=== PATIENT | female | born 1975 | race Two or more races ===

== ENCOUNTER 2020-05-04 21:30 | Emergency (ER) | payer SELFPAY ==
--- NOTE | 2020-05-04 22:01 | EDM.PDOC ---
ED HPI GENERAL MEDICAL PROBLEM - General Chief Complaint: Cardiovascular Problem Stated Complaint: IRREGUALR HEART BEAT SOB Time Seen by Provider: 05/04/20 22:00 - History of Present Illness INITIAL COMMENTS - FREE TEXT/NARRATIVE: 44-year-old female presents the emergency room with palpitations and what she thinks is an irregular heartbeat. This started a couple hours prior to arrival the patient feels a little bit anxious. Patient denies any breathing difficulties chest pain or shortness of breath. Patient has a history of prediabetes but denies any other medical problems. The patient is visiting family from [place]. And is scheduled to go home this next week. Mid-Sternal Chest Pain Score (Numeric/FACES): 4 - Related Data Allergies Allergy/AdvReac Type Severity Reaction Status Date / Time No Known Allergies Allergy Verified 05/04/20 21:40 Home Meds: Home Meds Amoxicillin [Amoxil 250 MG/5 ML Susp] 500 mg PO TID 05/04/20 [History] LORazepam [Ativan] 1 mg PO ASDIRECTED PRN #5 tablet 05/05/20 [Rx] Past Medical History - Past Surgical History HEENT Surgical History: Reports: Oral Surgery Social & Family History - Tobacco Use Smoking Status *Q: Never Smoker - Caffeine Use Caffeine Use: Reports: None - Recreational Drug Use Recreational Drug Use: No ED ROS GENERAL - Review of Systems Review Of Systems: See Below Constitutional: Reports: No Symptoms HEENT: Reports: No Symptoms Respiratory: Reports: No Symptoms Cardiovascular: Reports: Palpitations. Denies: Chest Pain Endocrine: Reports: No Symptoms GI/Abdominal: Reports: No Symptoms : Reports: No Symptoms Neurological: Reports: No Symptoms Psychiatric: Reports: No Symptoms ED EXAM, GENERAL - Physical Exam Exam: See Below Exam Limited By: Language Barrier (She speaks pretty good Polish her daughter is able to translate if any clarification needs to be done) General Appearance: Alert, No Apparent Distress, Obese Head: Atraumatic, Normocephalic Respiratory/Chest: No Respiratory Distress, Lungs Clear, Normal Breath Sounds Cardiovascular: No Edema, No Murmur, Tachycardia, Other (Mild tachycardia rate about 110 during my exam) GI/Abdominal: Normal Bowel Sounds, Soft, Non-Tender, Other (Significant abdominal obesity) Back Exam: Normal Inspection. No: CVA Tenderness (L), CVA Tenderness (R) Extremities: Normal Inspection, Non-Tender, No Pedal Edema Neurological: Alert, Oriented, Normal Cognition Psychiatric: Anxious Course - Vital Signs Last Recorded V/S: Last Vital Signs Temp 36.2 C 05/04/20 23:49 Pulse 96 05/04/20 23:49 Resp 18 05/04/20 23:49 BP 130/64 05/04/20 23:49 Pulse Ox 96 05/04/20 23:49 - Orders/Labs/Meds Orders: Active Orders 24 hr Category Date Time Status EKG Documentation Completion [RC] ASDIRECTED Care 05/04/20 22:14 Active Holter Monitor 24 Hours [RC] .PRN Care 05/04/20 23:57 Active Chest 1V Frontal [CR] Stat Exams 05/04/20 22:10 Taken EKG 12 Lead [EK] Stat Ther 05/04/20 22:14 Ordered Labs: Laboratory Tests 05/04/20 05/04/20 05/04/20 Range/Units 22:22 22:22 22:22 WBC 7.55 (3.98-10.04) K/mm3 RBC 4.69 (3.98-5.22) M/mm3 Hgb 12.3 (11.2-15.7) gm/dl Hct 38.6 (34.1-44.9) % MCV 82.3 (79.4-94.8) fl MCH 26.2 (25.6-32.2) pg MCHC 31.9 L (32.2-35.5) g/dl RDW Std Deviation 44.1 (36.4-46.3) fL Plt Count 261 (182-369) K/mm3 MPV 9.6 (9.4-12.3) fl Neut % (Auto) 55.4 (34.0-71.1) % Lymph % (Auto) 32.1 (19.3-51.7) % [place] % (Auto) 10.5 (4.7-12.5) % Eos % (Auto) 1.3 (0.7-5.8) Baso % (Auto) 0.4 (0.1-1.2) % Neut # (Auto) 4.19 (1.56-6.13) K/mm3 Lymph # (Auto) 2.42 (1.18-3.74) K/mm3 [place] # (Auto) 0.79 H (0.24-0.36) K/mm3 Eos # (Auto) 0.10 (0.04-0.36) K/mm3 Baso # (Auto) 0.03 (0.01-0.08) K/mm3 PT 10.7 (9.7-12.0) SECONDS INR 1.00 APTT 24 (22-31) SECONDS Sodium 139 (136-145) mEq/L Potassium 3.9 (3.5-5.1) mEq/L Chloride 104 (98-107) mEq/L Carbon Dioxide 27 (21-32) mEq/L Anion Gap 11.9 (5-15) BUN 8 (7-18) mg/dL Creatinine 0.7 (0.55-1.02) mg/dL Est Cr Clr Drug Dosing 72.13 mL/min Estimated GFR (MDRD) > 60 (>60) mL/min BUN/Creatinine Ratio 11.4 L (14-18) Glucose 105 (74-106) mg/dL Calcium 9.4 (8.5-10.1) mg/dL Magnesium 1.8 (1.8-2.4) mg/dl Total Bilirubin 0.3 (0.2-1.0) mg/dL AST 22 (15-37) U/L ALT 38 (14-59) U/L Alkaline Phosphatase 93 (46-116) U/L Troponin I < 0.017 (0.00-0.056) ng/mL Total Protein 7.6 (6.4-8.2) g/dl Albumin 3.7 (3.4-5.0) g/dl Globulin 3.9 gm/dL Albumin/Globulin Ratio 1.0 (1-2) Urine HCG, Qual (NEGATIVE) 05/04/20 Range/Units 23:13 WBC (3.98-10.04) K/mm3 RBC (3.98-5.22) M/mm3 Hgb (11.2-15.7) gm/dl Hct (34.1-44.9) % MCV (79.4-94.8) fl MCH (25.6-32.2) pg MCHC (32.2-35.5) g/dl RDW Std Deviation (36.4-46.3) fL Plt Count (182-369) K/mm3 MPV (9.4-12.3) fl Neut % (Auto) (34.0-71.1) % Lymph % (Auto) (19.3-51.7) % [place] % (Auto) (4.7-12.5) % Eos % (Auto) (0.7-5.8) Baso % (Auto) (0.1-1.2) % Neut # (Auto) (1.56-6.13) K/mm3 Lymph # (Auto) (1.18-3.74) K/mm3 [place] # (Auto) (0.24-0.36) K/mm3 Eos # (Auto) (0.04-0.36) K/mm3 Baso # (Auto) (0.01-0.08) K/mm3 PT (9.7-12.0) SECONDS INR APTT (22-31) SECONDS Sodium (136-145) mEq/L Potassium (3.5-5.1) mEq/L Chloride (98-107) mEq/L Carbon Dioxide (21-32) mEq/L Anion Gap (5-15) BUN (7-18) mg/dL Creatinine (0.55-1.02) mg/dL Est Cr Clr Drug Dosing mL/min Estimated GFR (MDRD) (>60) mL/min BUN/Creatinine Ratio (14-18) Glucose (74-106) mg/dL Calcium (8.5-10.1) mg/dL Magnesium (1.8-2.4) mg/dl Total Bilirubin (0.2-1.0) mg/dL AST (15-37) U/L ALT (14-59) U/L Alkaline Phosphatase (46-116) U/L Troponin I (0.00-0.056) ng/mL Total Protein (6.4-8.2) g/dl Albumin (3.4-5.0) g/dl Globulin gm/dL Albumin/Globulin Ratio (1-2) Urine HCG, Qual Negative (NEGATIVE) Meds: Medications Discontinued Medications Generic Name Dose Route Start Last Admin Trade Name Freq PRN Reason Stop Dose Admin Lorazepam 1 mg 05/04/20 22:14 05/05/20 00:11 Ativan IVPUSH 05/04/20 22:15 Not Given ONETIME ONE Lorazepam 1 mg 05/04/20 22:27 05/04/20 23:03 Ativan PO 05/04/20 22:28 1 mg ONETIME ONE Administration - Re-Assessments/Exams Free Text/Narrative Re-Assessment/Exam: 05/05/20 00:14 Patient is doing much better after some Ativan however her pulse still runs a little on the fast side. Discussed the importance of further evaluation down the road including a Holter monitor and after discussion the patient and daughter decided that the patient should probably stay here to have the Holter done and is willing to follow-up in the hospital clinic so this can get sorted out and delay her departure to [place]. 05/05/20 01:24 Laboratory evaluation is complete the Holter monitor is on we will discharge at this time. Departure - Departure Time of Disposition: 01:24 Disposition: Home, Self-Care 01 Clinical Impression: Palpitations, Tachycardia, Anxiety Referrals: PCP,Not In Area [Primary Care Provider] - Forms: ED Department Discharge Additional Instructions: Return to the emergency room with any questions problems or worsening symptoms. Return the Holter monitor as instructed. Follow-up in the hospital clinic at the end of this next week. Call tomorrow to schedule an appointment. [phone] You have been given a prescription for Ativan, use this as directed and as needed for anxiety. Sepsis Event Note (ED) - Evaluation Sepsis Screening Result: No Definite Risk - Focused Exam Vital Signs: Vital Signs Temp Pulse Resp BP Pulse Ox 05/04/20 23:49 36.2 C 96 18 130/64 96 05/04/20 23:05 36.1 C 105 H 18 126/77 95 05/04/20 21:37 36.1 C 118 H 22 H 125/68 99 - My Orders Last 24 Hours: My Active Orders 05/04/20 22:10 Chest 1V Frontal [CR] Stat 05/04/20 22:14 EKG Documentation Completion [RC] ASDIRECTED EKG 12 Lead [EK] Stat 05/04/20 23:57 Holter Monitor 24 Hours [RC] .PRN - Assessment/Plan Last 24 Hours: My Active Orders 05/04/20 22:10 Chest 1V Frontal [CR] Stat 05/04/20 22:14 EKG Documentation Completion [RC] ASDIRECTED EKG 12 Lead [EK] Stat 05/04/20 23:57 Holter Monitor 24 Hours [RC] .PRN
[2020-05-04] MEDS ORDERED: LORazepam 2 MG/ML SDV IVPUSH ONE (22:14)
[2020-05-04] MEDS ORDERED: LORazepam 1 MG Tab PO ONE (22:27)
--- NOTE | 2020-05-05 13:28 | CR ---
Chest: Frontal view of the chest was obtained. Comparison: No previous chest imaging is available. Heart size and mediastinum are normal. Lungs are clear with no acute parenchymal change. Bony structures are grossly intact. Impression: 1. Nothing acute is seen on frontal chest x-ray. Diagnostic code #1 This report was dictated in MDT
== END 2020-05-05 01:52 | disposition home or self-care (01) ==
LOC: JD.ED 21:30
DX: F41.9 Anxiety disorder, unspecified (principal); E66.9 Obesity, unspecified; Z68.42 Body mass index [BMI] 45.0-49.9, adult
CPT/HCPCS: 36415; 71045; 80053; 81025; 83735; 84484; 85025; 85610; 85730; 93005; 93225; 99285; A9270; 93010; 99284